=== PATIENT | female | born 2000 | race Caucasian/White ===

== ENCOUNTER 2023-12-10 17:29 | Emergency (ER) | payer OTHER, SELFPAY ==
[2023-12-10 17:30] VITALS: BP 133/74
[2023-12-10 18:49] VITALS: BMI 24.8
[2023-12-10 18:54] VITALS: BP 103/67
[2023-12-10 19:03] LABS: Urine Albumin Negative (Neg - Trace); Urine Bilirubin Negative (Negative); Urine Character Very Cloudy (Clear); Urine Color Yellow; Urine Glucose Negative (Negative); Urine Ketone Negative (Negative); Urine Leukocyte 1+ (Negative); Urine Nitrite Negative (Negative); Urine Occult Blood 1+ (Negative); Urine Specific Gravity 1.015 (<1.030); Urine Urobilinogen Negative (Neg - 1+)
[2023-12-10 19:11] LABS: Urine Amorphous Seen
--- NOTE | 2023-12-10 19:30 | ED.GENMED ---
History of Present Illness
General
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
Source: patient
Exam Limitations: none
Time Seen by Provider: 12/10/23 18:39
Nursing documentation reviewed up to this point in time: agreed with
History of Present Illness
History of Present Illness:
pt is a 23 y/o F with h/o 14 weeks preg
has had IUP on US
says 2 weeks ago she had uri sxs and went to urgent care and was told she just had a virus but also probably had a urine infection and was given cephalexin
she took it a few days and then got a phone call from the urgent care telling her she didn't need to take it.
she stoppedi t for about 1 week before starting to have symptoms of dysuria, and urgency
she went to gyne 3 days ago and had urine dip that she was told was neg and that a urine culture would be sent
she didn't hear from them yesterday so she presumes there is no bacteria but her symptoms are worsening with Reaser bleed feeling when she urinates and suprapubic pressure. She is having no vaginal bleeding, back pain, fevers or chills, nausea or
vomiting but she is having some normal clear vaginal discharge. She is not having any vaginal itching. Her POLO COACH did not do an pelvic exam. She has 1 sexual partner and is not concerned about STIs but she did request testing anyway
Past History
Past History
ED Past Medical History: None
ED Past Surgical History: None
Social History
Tobacco: Non-smoker
Alcohol: None
Drug: None
Personal: Single
Living: with family
Review of Systems
Review of Systems
Allergies reviewed?: Yes
All Other Systems: Not applicable
Phy Exam
Physical Exam
Physical Exam:
GENERAL: Alert , in no apparent distress
ENT: o/p clr, mmm.
CARDIAC: Regular rate and rhythm .
LUNGS: Clear breath sounds bilaterally, no acute respiratory distress, no wheezes/rales/rhonchi
ABDOMEN: Soft, without focal tenderness, no r/g, no cvat, normal bowel sounds
: normal inspection
no bleeding
white thin discharge, no foul smell
cervix closed
no internal tenderness;
back: no cva tenderness
SKIN: Warm and dry, skin intact.
PSYCH: Normal and appropriate interaction.
Course
Orders/Labs/Results
Orders:
Orders
12/10/23 18:53
Urinalysis Reflex To Culture Urgent
Date Specimen was Collected: 12/10/23
Time Specimen was Collected: 18:52
Urine Microscopic Reflex Cult Urgent
Urine Culture Urgent
JODIE Source: U
Specimen Description:
Date Specimen was Collected: 12/10/23
Time Specimen was Collected: 18:52
12/10/23 19:29
Phenazopyridine HCl [Pyridium] 200 mg PO NOW STA
12/10/23 19:54
Chlamydia/GC by PCR Urgent
JODIE Source: Endo-Cervical
Specimen Description:
Source:: CERVIX
Date Specimen was Collected: 12/10/23
Time Specimen was Collected: 19:43
Trichomonas - Wet Prep Urgent
JODIE Source: Vagina
Specimen Description:
Date Specimen was Collected: 12/10/23
Time Specimen was Collected: 19:43
12/10/23 20:01
Cefdinir [Omnicef] 300 mg PO NOW STA
Abnormal Lab Results
12/10/23
18:53
Ur Occult Blood Reflex 1+ A
(Negative)
Leukocyte Esterase Rfl 1+ A
(Negative)
Urine RBC 3-6 A /HPF
(0-2)
Vital Signs
Initial and Last Documented VS:
Initial Vital Signs
Temp Pulse Resp BP Pulse Ox
98.9 F 98 16 133/74 99
12/10/23 17:30 12/10/23 17:30 12/10/23 17:30 12/10/23 17:30 12/10/23 17:30
Last Documented Vital Signs
Temp Pulse Resp BP Pulse Ox
98.9 F 91 18 113/72 99
12/10/23 17:30 12/10/23 20:05 12/10/23 18:54 12/10/23 20:05 12/10/23 18:54
MDM/Problems Addressed
Differential Diagnosis Includes:
uti, urethritis, less likely kidney stone
MDM/Problems Addressed:
23 y/o F 14 weeks
IUP on U/S previously
uti sxs x 4-5 days, worsening dysuria which feels like razor blades. She does have frequency as well. She tries to hold it in so that she does not have to void. She is not having any vaginal bleeding or leakage of fluid but does have some clear
discharge. There is no back pain or abdominal pain or nausea or vomiting or fever. She did have a urine dip at her POLO COACH office within the past couple of days that was negative and would we are presuming to be a negative urine culture however she
was not called with results yesterday. I do suspect that given the patient had some bacteriuria 2 weeks ago when she was seen in urgent care partially treated with Keflex maybe that is why her initial urinalysis was negative because today she has
leukocytes, blood, few white cells and red cells with a cloudy urine and with her symptoms being I believe she needs to be treated for cystitis. She has no signs of Jackson at this point. Will advance her to cefdinir, 10 days written but 7
days would be likely sufficient if symptoms resolved. Encouraged her to drink fluids. Pyridium for pain. Return precautions
*Critical Care Note
Total Time (30-74mins, 75-104mins- exclusive of procedures): Not Applicable
ED Attending Note
-
Portions of this chart may have been created with voice recognition software.� Occasional wrong word or��sound alike� substitutions may have occurred due to the inherent limitations of voice recognition software.
Discharge Plan
Departure
Patient Disposition: Home (Routine Discharge)
Date of Disposition: 12/10/23
Time of Disposition: 19:41
Patient with high blood pressure during this ER visit?: No
Condition: Fair
Covid-19: Not Applicable
Discharge Problem:
UTI (urinary tract infection)
Instructions: Urinary Tract Infection, Adult (DC), Urinary tract infections in
Prescriptions:
New
cefdinir 250 mg/5 mL suspension for reconstitution
300 mg PO BID 10 Days Qty: 120 0RF
phenazopyridine [Pyridium] 200 mg tablet
200 mg PO TID PRN (Reason: Pain) Qty: 5 0RF
Referrals:
NONE,* [Family Provider] -
Activity Restrictions/Additional Instructions:
YOUR SYMPTOMS ARE PROBABLY FROM A BLADDER INFECTION
DRINK FLUIDS
TAKE TYLENOL FOR PAIN NEEDED
CEFDINIR TWICE A DAY FOR AT LEAST 7 DAYS, YOU CAN TAKE TIL 10 DAYS IF YOU ARE STILL SYMPTOMATIC BUT 7 DAYS IS PROBABLY ENOUGH.
USE PYRIDIUM 1 TAB 2-3 TIMES A DAY FOR 2 DAYS TO HELP WITH PAIN
THIS WILL COLOR YOUR PEE ORANGE
WE TESTED YOU FOR STDS JUST IN CASE
WE WILLCALL YOU IF WE NEED TO CHANGE YOUR ANTIBIOTIC.
RETURN FOR: FEVER, VOMITING , BACK KPAIN, VAGINAL BLEEDING ORANY CONCNERNS.
Interventions
Interventions:
*Risk Screen - Suicide Last Done: 12/10/23 18:49
*General Assessment Last Done: 12/10/23 17:30
*Neglect/Abuse Screening Last Done: 12/10/23 18:49
ED- Fall Risk Assessment Last Done: 12/10/23 18:51
*ED COVID-19 Vaccine History Last Done: 12/10/23 17:30
ED-Female Genitourinary Assessment Last Done: 12/10/23 18:50
Discharge Date and Time
Print Language: CENTRAL AFRICAN
[2023-12-10] MEDS: Pyridium 200 MG PO (20:03)
[2023-12-10 20:05] VITALS: BP 113/72
[2023-12-10] MEDS: OMNICEF 300 MG PO (20:28)
== END 2023-12-10 20:51 | disposition home or self-care (01) ==
LOC: EMR 17:29
PROVIDERS: Physician Assistant; EMERGENCY PHYSICIAN Emergency Medicine
DX: O23.42 Unspecified infection of urinary tract in pregnancy, second trimester (principal); N39.0 Urinary tract infection, site not specified; Z3A.14 14 weeks gestation of pregnancy
CPT/HCPCS: 99283; 81003; 81015; 87086; 87147; 87210; 87491; 87591

== ENCOUNTER 2024-01-13 20:05 | Emergency (ER) | payer OTHER, SELFPAY ==
[2024-01-13 20:31] LABS: Urine Albumin Trace (Neg - Trace); Urine Bilirubin Negative (Negative); Urine Character Clear (Clear); Urine Color Yellow; Urine Glucose Negative (Negative); Urine Ketone Negative (Negative); Urine Leukocyte 2+ (Negative); Urine Nitrite Negative (Negative); Urine Occult Blood 4+ (Negative); Urine Urobilinogen Negative (Neg - 1+)
[2024-01-13 20:41] LABS: Urine Squamous Cell 16-20 /LPF (Few)
[2024-01-13 20:42] LABS: Urine White Cell 50-60 /HPF (0-5)
[2024-01-13 20:43] LABS: Urine Bacteria Moderate (Negative)
--- NOTE | 2024-01-13 23:12 | ED.GENMED ---
History of Present Illness
General
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
Source: patient and previous hospital records (ED visit for somewhat similar complaints just 1 month ago December 10, 2023. Diagnosed with a UTI. Urine culture returned positive for Staph saprophyticus. Treated with a 10-day course of cefdinir.)
Exam Limitations: none
Time Seen by Provider: 01/13/24 22:53
Nursing documentation reviewed up to this point in time: agreed with
History of Present Illness
History of Present Illness:
This is a 23-year-old female 1 para 0 currently 5 months with EDC of June 01. She follows with ENGLISH LANGUAGE ARTS TEACHER at [facility].
She presents with UTI symptoms complaining of urinary frequency, urgency, dysuria and suprapubic pressure. Symptoms began mildly yesterday, worse today. She denies abdominal pain, no flank pain, no fever no chills, no nausea nor vomiting.
Similar UTI symptoms for which she presented to this ED 1 month ago, December 09. Diagnosed with a UTI and urine culture returned positive for Staph saprophyticus. She was treat with a 10-day course of cefdinir.
She completed antibiotics and reports complete relief of symptoms until yesterday.
She does note concern for a yeast infection 1 week ago with moderate vaginal itching and scant white discharge. She called her professor of journalism and was recommended to use Monistat which she neglected to use. Vaginal itching has markedly improved, near
resolved but she continues with intermittent mild itching and would like to be checked.
She denies vaginal bleeding. She has not had a fever nor chills. No abdominal pain.
Good movement.
Previous ED visit from 1 month ago reviewed. STD testing for chlamydia/gonorrhea negative. Trichomonas wet mount was negative as well.
She is sexually active, 1 partner. No previous STDs reported.
She has had prior ultrasounds noting single viable IUP.
Past History
Past History
ED Past Medical History: None
ED Past Surgical History: None
Social History
Tobacco: Non-smoker
Alcohol: None
Drug: None
Personal: Single
Living: with family
Employment: Not employed
Family History
Family History: Other (Noncontributory)
Phy Exam
Physical Exam
Physical Exam:
GENERAL: 23-year-old female appears her stated age, bright and alert, pleasant, appears in no acute distress. Sleeps when undisturbed. Afebrile, normotensive.
EYE: anicteric
NECK: Supple, nontender, no meningismus, no significant adenopathy.
ENT: oral mucosa is moist. No rhinorrhea.
CARDIAC: Regular rate and rhythm. no murmur.
LUNGS: Clear breath sounds bilaterally, no acute respiratory distress, no wheezes/rales/rhonchi
ABDOMEN: Gravid, fundus height at umbilicus, nontender, soft, nondistended, without focal tenderness, no r/g, no cvat. normoactive BS. Bladder is not palpably distended and no suprapubic tenderness to palpation.
: Moderate thick white vaginal discharge. There is no cervical erythema, no vulvar erythema nor rash.
NEUROLOGICAL: Alert and oriented x3, no focal neuro deficits. Gait is rosales and steady.
SKIN: Warm and dry, normal color, skin intact. No rash.
MUSCULOSKELETAL: No C/C/E. peripheral pulses are full and equal b/l. No palpable tenderness.
PSYCH: Normal and appropriate interaction.
Course
Orders/Labs/Results
Orders:
Orders
01/13/24 20:21
Urinalysis Reflex To Culture Urgent
Date Specimen was Collected: 01/13/24
Time Specimen was Collected: 20:20
Urine Microscopic Reflex Cult Urgent
Urine Culture Urgent
JODIE Source: U
Specimen Description:
Date Specimen was Collected: 01/13/24
Time Specimen was Collected: 20:20
01/13/24 23:11
Fosfomycin [Monurol] 3 gm PO ONCE ONE
01/13/24 23:12
Bladder Scan- Treatment ONCE
Abnormal Lab Results
01/13/24
20:21
Ur Occult Blood Reflex 4+ A
(Negative)
Leukocyte Esterase Rfl 2+ A
(Negative)
Urine RBC 7-10 A /HPF
(0-2)
Urine WBC (Reflex) 50-60 A /HPF
(0-5)
Urine Bacteria (Reflex) Moderate A
(Negative)
Vital Signs
Initial and Last Documented VS:
Initial Vital Signs
Temp Pulse Resp BP Pulse Ox
98.1 F 98 18 117/82 98
01/13/24 20:06 01/13/24 20:06 01/13/24 20:06 01/13/24 20:06 01/13/24 20:06
Last Documented Vital Signs
Temp Pulse Resp BP Pulse Ox
98.1 F 98 18 117/82 98
01/13/24 20:06 01/13/24 20:06 01/13/24 20:06 01/13/24 20:06 01/13/24 20:06
MDM/Problems Addressed
Differential Diagnosis Includes:
Concern for UTI, bladder outlet obstruction.
Concern for candidal vaginitis, bacterial vaginitis.
Testing for chlamydia, gonorrhea, trichomonas (-)1-month ago.
Will check bladder scan.
Will send vaginal culture.
Urinalysis concerning for UTI, 50-60 WBCs, 7-10 RBCs, moderate bacteria.
Urine culture is pending.
Nothing in history nor exam to suspect upper tract infection/pyelonephritis.
Will treat with a one-time dose of Monurol and await urine culture.
Recommend Monistat for candidal vaginitis.
Discussed importance of remaining well-hydrated on a daily basis.
Prompt follow-up with ENGLISH LANGUAGE ARTS TEACHER.
Return precautions discussed.
Chronic conditions affecting care: Other (Currently /second trimester.)
*Pulse Oximetry
Patient hypoxic: no
*Critical Care Note
Total Time (30-74mins, 75-104mins- exclusive of procedures): Not Applicable
Update Note
Update Note:
01/13/2024 2352 PM
Bladder scan shows less than 240 cc in the bladder. Not consistent with acute obstruction.
Overall patient continues to appear comfortable.
She has been treated with a one-time dose of Monurol which should be effective for UTI with no need for further antibiotics.
ED Attending Note
-
Portions of this chart may have been created with voice recognition software.� Occasional wrong word or��sound alike� substitutions may have occurred due to the inherent limitations of voice recognition software.
Discharge Plan
Departure
Patient Disposition: Home (Routine Discharge)
Date of Disposition: 01/13/24
Time of Disposition: 23:53
Patient with high blood pressure during this ER visit?: No
Condition: Good
Discharge Problem:
UTI (urinary tract infection) during , Candidal vaginitis
Instructions: Yeast Infection (DC), Urinary tract infections in
Prescriptions:
New
miconazole nitrate [Monistat 3] 4 % (200 mg)- 2 % (9 gram) comb pack,prefill appl, cream
1 appful vaginal HS 3 Days Qty: 24 0RF
No Action
cefdinir 250 mg/5 mL suspension for reconstitution
300 mg PO BID 10 Days Qty: 120 0RF
phenazopyridine [Pyridium] 200 mg tablet
200 mg PO TID PRN (Reason: Pain) Qty: 5 0RF
Referrals:
NONE,* [Family Provider] -
Activity Restrictions/Additional Instructions:
Stay well-hydrated on a daily basis.
Follow-up with your professor of journalism for recheck.
Interventions
Interventions:
*Risk Screen - Suicide Last Done: 01/13/24 20:06
*General Assessment Last Done: 01/13/24 20:06
*Neglect/Abuse Screening Last Done: 01/13/24 20:06
Discharge Date and Time
Print Language: MOHAWK
[2024-01-13] MEDS: MONUROL 3 GM PO (23:20)
== END 2024-01-14 00:04 | disposition home or self-care (01) ==
LOC: EMR 20:05
PROVIDERS: Emergency Medicine; EMERGENCY PHYSICIAN Emergency Medicine
DX: O23.592 Infection of other part of genital tract in pregnancy, second trimester (principal); N39.0 Urinary tract infection, site not specified; B37.31 Acute candidiasis of vulva and vagina; Z3A.20 20 weeks gestation of pregnancy
CPT/HCPCS: 99283; 51798; 81003; 81015; 87070; 87086

== ENCOUNTER 2024-08-29 17:26 | Emergency (ER) | payer OTHER, MEDICAID, SELFPAY ==
[2024-08-29 17:28] VITALS: BP 123/83
[2024-08-29 17:45] LABS: % Basophils 0.6 % (0-2); % Eosinophils 6.9 % (0-6); % Immature Granulocytes 0.3 % (0-0.5); % Monocytes 5.7 % (1.7-9.3); % Neutrophils 74.5 % (42.2-75.2); Absolute Basophils 0.1 10^3/uL (0-0.2); Absolute Eosinophils 0.7 10^3/uL (0-0.7); Absolute Lymphocytes 1.3 10^3/uL (1.2-3.4); Absolute Monocytes 0.6 10^3/uL (0.1-0.6); Absolute Neutrophils 7.8 10^3/uL (1.4-6.5); Hematocrit 35.7 % (37.0-47.0); Hemoglobin 12.1 g/dL (12.0-16.0); Mean Corp Hgb Conc. 33.9 g/dL (33.0-37.0); Mean Corpuscular Hgb 29.4 pg (27.0-31.0); Mean Corpuscular Volume 86.9 fL (81.0-99.0); Mean Platelet Volume 10.1 fL (7.4-10.4); Nucleated Red Blood Cells % 0 %; Platelet Count 293 10^3/uL (130-400); Red Blood Cell Count 4.11 10^6/uL (4.20-5.40); White Blood Cell Count 10.4 10^3/uL (4.8-10.8)
[2024-08-29 17:55] LABS: HCG, Serum Qualitative Screen Negative
[2024-08-29 17:58] LABS: ALT (SGPT) 17 U/L (0-35); AST (SGOT) 20 U/L (14-36); Albumin 4.4 g/dl (3.5-5.0); Alkaline Phosphatase 83 U/L (38-126); Blood Urea Nitrogen 11 mg/dl (7-17); Calcium 9.6 mg/dl (8.4-10.2); Carbon Dioxide 23 mmol/L (22-30); Chloride 106 mmol/L (98-107); Glucose 94 mg/dl (70-99); Lipase 47 U/L (23-300); Potassium 3.8 mmol/L (3.5-5.1); Sodium 137 mmol/L (135-145); Total Bilirubin 0.9 mg/dl (0.2-1.3); Total Protein 7.6 g/dl (6.3-8.2); eGFR > 60.00
[2024-08-29] MEDS: OMNIPAQUE 50 ML PO (19:03)
[2024-08-29] MEDS: NSS 1000 IV (19:09)
[2024-08-29 21:06] LABS: Urine Albumin 1+ (Neg - Trace); Urine Bilirubin Negative (Negative); Urine Character Clear (Clear); Urine Color Yellow; Urine Glucose Negative (Negative); Urine Ketone 2+ (Negative); Urine Leukocyte Negative (Negative); Urine Nitrite Negative (Negative); Urine Occult Blood 1+ (Negative); Urine Urobilinogen Negative (Neg - 1+)
[2024-08-29 21:22] VITALS: BP 124/83
[2024-08-29 21:28] LABS: Urine Bacteria Few (Negative); Urine Mucus Moderate; Urine Red Blood Cell 0-2 /HPF (0-2); Urine Squamous Cell >30 /LPF (Few); Urine White Cell 0-2 /HPF (0-5)
--- NOTE | 2024-08-29 22:08 | ED.GENMED ---
History of Present Illness
General
Chief Complaint: Abdominal Pain
Time Seen by Provider: 08/29/24 18:39
History of Present Illness
History of Present Illness:
24-year-old female ongoing lower abdominal cramps for 3 to 4 days. Had a ovarian cyst removal 2 weeks ago. Was having this pain prior to the cyst removal however pain that is similar in nature has recurred. No fever no urinary symptoms no change
in bowels.
Past History
Past History
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
ED Past Surgical History: and Gynecological
Social History
Tobacco: Non-smoker
Alcohol: None
Drug: None
Personal: Single
Living: with family
Employment: Not employed
Family History
Family History: Other (Noncontributory)
Phy Exam
Physical Exam
Physical Exam:
GENERAL: Alert and oriented in no apparent distress
EYE: Orbits normal.
NECK: Supple, no significant adenopathy.
CARDIAC: Regular rate and rhythm without any obvious murmurs.
LUNGS: Clear breath sounds,normal
ABDOMEN: Soft, bowel sounds present. Minimal periumbilical tenderness. No rebound or guarding no mass or hernia
NEUROLOGICAL: Alert and oriented , grossly non-focal
SKIN: Warm and dry, no rash or lesion, no discoloration, skin intact.
MUSCULOSKELETAL: No edema,no deformity.Good color
PSYCH: Normal and appropriate interaction.
Course
Orders/Labs/Results
Orders:
Orders
08/29/24 17:31
Test Result ONCE
08/29/24 17:34
Complete Blood Count/With Diff Urgent
Comprehensive Metabolic Panel Urgent
HCG, Serum Qualitative Screen Urgent
Lipase Urgent
08/29/24 18:53
CT Abd/pel W Iv And Oral Contr Urgent
Comment:
Reason For Exam: Right lower quadrant pain. Recent left cyst remov
Iohexol [Omnipaque] See Protocol PO NOW STA
US Pelvis Only (non-obstetric) Urgent
Comment:
Reason For Exam: Right pelvic pain. Recent left cyst removal
08/29/24 18:54
0.9% Sodium Chloride 1000 ml [Nss] 1,000 ml IV BOLUS
08/29/24 20:57
Urinalysis Reflex To Culture Urgent
Date Specimen was Collected: 08/29/24
Time Specimen was Collected: 20:54
Urine Microscopic Reflex Cult Urgent
Abnormal Lab Results
08/29/24 08/29/24
17:34 20:57
RBC 4.11 L 10^6/uL
(4.20-5.40)
Hct 35.7 L %
(37.0-47.0)
Absolute Neuts (auto) 7.8 H 10^3/uL
(1.4-6.5)
Lymphocytes % 12.0 L %
(20.5-51.1)
Eosinophils % 6.9 H %
(0-6)
Urine Ketones 2+ A
(Negative)
Ur Occult Blood Reflex 1+ A
(Negative)
Urine Bacteria (Reflex) Few A
(Negative)
Urine Albumin (Reflex) 1+ A
(Neg - Trace)
08/29/24 17:34
08/29/24 17:34
Vital Signs
Initial and Last Documented VS:
Initial Vital Signs
Temp Pulse Resp BP Pulse Ox
98.9 F 80 16 123/83 95
08/29/24 17:28 08/29/24 17:28 08/29/24 17:28 08/29/24 17:28 08/29/24 17:28
Last Documented Vital Signs
Temp Pulse Resp BP Pulse Ox
98.9 F 95 18 124/83 99
08/29/24 17:28 08/29/24 21:22 08/29/24 21:22 08/29/24 21:22 08/29/24 21:22
*Radiology
Radiology exam reviewed: radiology read reviewed (Negative pelvic ultrasound)
*Pulse Oximetry
Patient hypoxic: no
Comment: No acute findings on CT. Mild Hofstra thickening of the right colon and transverse colon
*Critical Care Note
Total Time (30-74mins, 75-104mins- exclusive of procedures): Not Applicable
Update Note
Update Note:
Symptoms not really consistent with a colitis although possible by CT. No other acute findings found. Medically stable. Nonsurgical abdomen. Nontoxic. Report of CT given to patient. Recommend PHYS ASSISTANT and GI follow-up
ED Attending Note
-
Portions of this chart may have been created with voice recognition software.� Occasional wrong word or��sound alike� substitutions may have occurred due to the inherent limitations of voice recognition software.
Discharge Plan
Departure
Patient Disposition: Home (Routine Discharge)
Date of Disposition: 08/29/24
Time of Disposition: 22:09
Patient with high blood pressure during this ER visit?: Yes
Discharge Problem:
Progressive lower abdominal pain
Instructions: Abdominal Pain, BLOOD PRESSURE
Prescriptions:
No Action
cefdinir 250 mg/5 mL suspension for reconstitution
300 mg PO BID 10 Days Qty: 120 0RF
phenazopyridine [Pyridium] 200 mg tablet
200 mg PO TID PRN (Reason: Pain) Qty: 5 0RF
miconazole nitrate [Monistat 3] 4 % (200 mg)- 2 % (9 gram) comb pack,prefill appl, cream
1 appful vaginal HS 3 Days Qty: 24 0RF
Referrals:
Danny Fraga MD [Active] - Next open appointment
Mala Farrar MD [Family Provider] - Follow up in 2-3 days
Activity Restrictions/Additional Instructions:
Recommend following up closely with your primary physician, PHYS ASSISTANT doctor and talent consultant that I listed above
Return sooner with increased pain bleeding fever vomiting or any other concerning symptoms
Interventions
Interventions:
AJ-[id number]-Hzthrbiduf Assessment Last Done: 08/29/24 20:04
Discharge Date and Time
Print Language: SWISS
== END 2024-08-29 22:20 | disposition home or self-care (01) ==
LOC: EMR 17:26
PROVIDERS: Emergency Medicine; EMERGENCY PHYSICIAN Emergency Medicine; FAMILY PHYSICIAN Internal Medicine
DX: R10.30 Lower abdominal pain, unspecified (principal); Z98.890 Other specified postprocedural states
CPT/HCPCS: 96360; 99284; 74177; 76856; 80053; 81003; 81015; 83690; 84703; 85025; Q9967

== ENCOUNTER 2024-09-29 06:24 | Day surgery (SDC) | payer OTHER, SELFPAY | END 2024-09-29 15:07 | disposition home or self-care (01) | LOC: GI 06:24 | PROVIDERS: ATTENDING PHYSICIAN Student in an Organized Health Care Education/Training Program | DX: R10.31 Right lower quadrant pain (principal); K62.89 Other specified diseases of anus and rectum; R19.7 Diarrhea, unspecified; R93.3 Abnormal findings on diagnostic imaging of other parts of digestive tract; R11.2 Nausea with vomiting, unspecified; R10.84 Generalized abdominal pain; K62.1 Rectal polyp; K20.0 Eosinophilic esophagitis | CPT/HCPCS: 45385; 45380; 43239; 88305; 88342 ==

== ENCOUNTER 2024-11-18 17:59 | Emergency (ER) | payer OTHER, SELFPAY ==
[2024-11-18 18:04] VITALS: BP 128/87
[2024-11-18 18:34] LABS: HCG, Serum Qualitative Screen Negative
[2024-11-18 18:38] LABS: ALT (SGPT) 27 U/L (0-35); AST (SGOT) 20 U/L (14-36); Albumin 4.4 g/dl (3.5-5.0); Alkaline Phosphatase 62 U/L (38-126); Blood Urea Nitrogen 10 mg/dl (7-17); Calcium 9.6 mg/dl (8.4-10.2); Carbon Dioxide 23 mmol/L (22-30); Chloride 111 mmol/L (98-107); Glucose 110 mg/dl (70-99); Potassium 4.7 mmol/L (3.5-5.1); Sodium 140 mmol/L (135-145); Total Bilirubin 0.3 mg/dl (0.2-1.3); Total Protein 7.6 g/dl (6.3-8.2); eGFR > 60.00
--- NOTE | 2024-11-18 19:06 | ED.GENMED ---
History of Present Illness
General
Chief Complaint: Rectal Bleeding
Source: patient
Exam Limitations: none
Time Seen by Provider: 11/18/24 18:44
Nursing documentation reviewed up to this point in time: agreed with
History of Present Illness
History of Present Illness:
Patient is a 22 show female who presents to the ER for evaluation. Patient complains of what she describes as a severe headache she woke up with this morning. She has taken extra Tylenol which did not relieve her symptoms. She has nauseous with
that. She does not typically get headaches. She denies any trauma or injury. She denies any neck pain or recent chiropractic manipulation. Denies any dizziness. She denies any photophobia recent illness fever chills
In addition she complains of bright red blood mixed with stool since Thursday. She denies any actual constipation or straining. Denies any current abdominal pain. She previously had abdominal pain and was seen by GI here and had a colonoscopy and
endoscopy 10/07 which was normal.
Past History
Past History
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
ED Past Surgical History: and Gynecological
Social History
Tobacco: Non-smoker
Alcohol: None
Drug: None
Personal: Single
Living: with family
Employment: Not employed
Family History
Family History: Other (Noncontributory)
Review of Systems
Review of Systems
Allergies reviewed?: Yes
All Other Systems: ROS reviewed and negative except as documented in HPI and ROS
Constitutional: Reports no symptoms
Cardiac: Reports no symptoms
ABD/GI: Reports nausea and other (brown stool mixed with bright red blood ); Denies diarrhea, constipated or anorexia
: Reports no symptoms
Musculoskeletal: Reports no symptoms
Skin: Reports no symptoms
Neurological: Reports headache; Denies dizzy or numbness
Psychiatric: Reports no symptoms
Phy Exam
General Physical Exam
General Presentation: no apparent distress
General age: appears stated age
General Skin: warm and dry
General Habitus: normal
General Mental: alert
General Hydration: appears well hydrated
Gastrointestinal Exam
Gastrointestinal Exam: normal bowel sounds, non tender, soft and other ( no stool in rectum; questionable internal hemorrhoid palpated on internal rectal exam )
Neurological Exam
Neurological Exam: alert and oriented x3
Musculoskeletal Exam
Musculoskeletal Exam: full ROM
Skin Exam
Skin Exam: normal color and warm/dry
Psychiatric Exam
Psychiatric Exam: normal mood/affect
Course
Orders/Labs/Results
Orders:
Orders
11/18/24 18:08
Type+Screen Urgent
PTT Urgent
Prothrombin Time Urgent
Test Result ONCE
11/18/24 18:11
Comprehensive Metabolic Panel Urgent
HCG, Serum Qualitative Screen Urgent
Comment: Notify provider if positive test present
11/18/24 19:06
CT Head W/o Iv Contrast Urgent
Comment:
Reason For Exam: headache
11/18/24 19:07
Complete Blood Count/With Diff Urgent
11/18/24 19:08
Ketorolac [Toradol] 30 mg IM NOW STA
Abnormal Lab Results
11/18/24 11/18/24
18:11 19:07
RBC 3.85 L 10^6/uL
(4.20-5.40)
Hgb 11.8 L g/dL
(12.0-16.0)
Hct 33.6 L %
(37.0-47.0)
Chloride 111 H mmol/L
(98-107)
Glucose 110 H mg/dl
(70-99)
11/18/24 19:07
11/18/24 18:11
Vital Signs
Initial and Last Documented VS:
Initial Vital Signs
Temp Pulse Resp BP Pulse Ox
98.5 F 84 16 128/87 98
11/18/24 18:04 11/18/24 18:04 11/18/24 18:04 11/18/24 18:04 11/18/24 18:04
Last Documented Vital Signs
Temp Pulse Resp BP Pulse Ox
98.5 F 84 16 128/87 98
11/18/24 18:04 11/18/24 18:04 11/18/24 18:04 11/18/24 18:04 11/18/24 18:04
MDM/Problems Addressed
Differential Diagnosis Includes:
not limited to: Headache, rectal bleeding versus hemorrhoids
MDM/Problems Addressed:
documented pt presented for headache which started today along with bright red blood in brown stool (which started several days ago).
Patient presents awake alert no acute distress normal neurologic exam. No recent fever chills or trauma no recent chiropractor ambulation or dizziness. Patient is very nontoxic-appearing CT negative.
In addition patient presented with pictures of her stool which is brown and appears soft strands of blood. She does report she has seen GI and had colonoscopy and endoscopy for abdominal pain and diarrhea I did review these reports no acute
findings. On exam patient appears to have a internal hemorrhoid. There is no stool in the rectum. This bright red blood mixed with brown stool is likely the source of the internal hemorrhoid she does have GI here . we will discharge with Anusol
suppositories and close outpatient follow-up with GI.
*Radiology
Radiology exam reviewed: radiology read reviewed
*Pulse Oximetry
Patient hypoxic: no
*Critical Care Note
Total Time (30-74mins, 75-104mins- exclusive of procedures): Not Applicable
Data Reviewed
Review of Other/Old Records Reveals: Other (Colonoscopy results )
ED Attending Note
-
Portions of this chart may have been created with voice recognition software.� Occasional wrong word or��sound alike� substitutions may have occurred due to the inherent limitations of voice recognition software.
Discharge Plan
Departure
Patient Disposition: Home (Routine Discharge)
Date of Disposition: 11/18/24
Time of Disposition: 20:24
Patient with high blood pressure during this ER visit?: Yes
Condition: Fair
Covid-19: Not Applicable
Discharge Problem:
Headache, Hemorrhoids
Instructions: Hemorrhoids (DC), Headaches in adults
Prescriptions:
New
hydrocortisone acetate [Anusol-HC] 25 mg suppository
25 mg IL HS Qty: 12 0RF
No Action
acetaminophen [Tylenol] 325 mg Tablet
650 mg PO Q6HPRN PRN (Reason: mild pain)
Blisovi 24 Fe 1 mg-20 mcg (24)/75 mg (4) Tablet
1 tab PO DAILY@1130
Referrals:
Oni Noel, DO [Active, Gastroenterology]
Activity Restrictions/Additional Instructions:
As discussed you were prescribed rectal suppositories for internal hemorrhoids. Use as directed.
In addition you may alternate between Motrin and Tylenol for headaches.
Follow-up with your family doctor in the next 2 days as well as GI.
Return if any worsening of symptoms
Interventions
Interventions:
*Risk Screen - Suicide Last Done: 11/18/24 18:04
*Neglect/Abuse Screening Last Done: 11/18/24 18:04
Discharge Date and Time
Print Language: [id number]
[2024-11-18 19:16] LABS: % Basophils 0.9 % (0-2); % Immature Granulocytes 0.1 % (0-0.5); % Lymphocytes 27.4 % (20.5-51.1); % Monocytes 6.2 % (1.7-9.3); % Neutrophils 60.4 % (42.2-75.2); Absolute Basophils 0.1 10^3/uL (0-0.2); Absolute Eosinophils 0.5 10^3/uL (0-0.7); Absolute Lymphocytes 2.5 10^3/uL (1.2-3.4); Absolute Monocytes 0.6 10^3/uL (0.1-0.6); Absolute Neutrophils 5.6 10^3/uL (1.4-6.5); Hematocrit 33.6 % (37.0-47.0); Hemoglobin 11.8 g/dL (12.0-16.0); Mean Corp Hgb Conc. 35.1 g/dL (33.0-37.0); Mean Corpuscular Hgb 30.6 pg (27.0-31.0); Mean Corpuscular Volume 87.3 fL (81.0-99.0); Mean Platelet Volume 10.2 fL (7.4-10.4); Nucleated Red Blood Cells % 0 %; Platelet Count 302 10^3/uL (130-400); Red Blood Cell Count 3.85 10^6/uL (4.20-5.40); Red Cell Dist. Width 12.6 % (11.5-14.5); White Blood Cell Count 9.2 10^3/uL (4.8-10.8)
[2024-11-18] MEDS: TORADOL 30 MG IM (19:20)
== END 2024-11-18 21:07 | disposition home or self-care (01) ==
LOC: EMR 17:59
PROVIDERS: Emergency Medicine; EMERGENCY PHYSICIAN Emergency Medicine; FAMILY PHYSICIAN Internal Medicine
DX: K62.5 Hemorrhage of anus and rectum (principal); K64.8 Other hemorrhoids
CPT/HCPCS: 99284; 96372; 70450; 80053; 84703; 85025

== ENCOUNTER 2025-02-28 06:25 | Day surgery (SDC) | payer OTHER, SELFPAY | END 2025-02-28 15:15 | disposition home or self-care (01) | LOC: GI 06:25 | PROVIDERS: ATTENDING PHYSICIAN Student in an Organized Health Care Education/Training Program | DX: K20.0 Eosinophilic esophagitis (principal); K22.89 Other specified disease of esophagus; F12.90 Cannabis use, unspecified, uncomplicated | CPT/HCPCS: 43239; 88305 ==